=== PATIENT | female | born 1990 | race Caucasian/White ===

== ENCOUNTER 2021-06-05 07:43 | Day surgery (SDC) | payer OTHER ==
[2021-06-05] MEDS ORDERED: Ringers Lactate 1,000 ML IV ONE (08:16)
[2021-06-05 08:42] LABS: Specific Gravity 1.025 (1.005-1.030)
[2021-06-05] MEDS ORDERED: LIDOCAINE 1% W/EPI 1:100,000 10 ML VIAL ONE (08:57)
[2021-06-05] MEDS ORDERED: OXYMETAZOLINE HCL 0.05% 15ML NAS ONE (09:11)
[2021-06-05] MEDS ORDERED: ROCURONIUM 50 MG/5 ML VIAL IV ONE ×2 (09:19→10:32)
[2021-06-05] MEDS ORDERED: FENTANYL CITR 100 MCG/2 ML ONE ×3 (09:19→10:32)
[2021-06-05] MEDS ORDERED: propofoL 200 MG/20 ML VIAL IV ONE (09:19)
[2021-06-05] MEDS ORDERED: MIDAZOLAM HCL 2 MG/2 ML INJ ONE (09:19)
[2021-06-05] MEDS ORDERED: LIDOCAINE 1% MPF 5 ML VIAL ONE (09:19)
[2021-06-05] MEDS ORDERED: LIDOCAINE JELLY 2%- 5 ML TUBE ONE (09:20)
[2021-06-05] MEDS: CLINDAMYCIN 900MG/D5W 900 MG/50 ML IVPB IV ONE ×2 (09:29→09:30)
[2021-06-05] MEDS ORDERED: CHLORHEXIDINE 0.12% 473ML BOT MM ONE (09:36)
[2021-06-05] MEDS ORDERED: KETOROLAC 30 MG/ML INJ ONE (09:43)
[2021-06-05] MEDS ORDERED: dexAMETHasone 10 MG/ML VIAL ONE (09:43)
[2021-06-05] MEDS ORDERED: ONDANSETRON 4 MG/2 ML VIAL ONE (09:45)
[2021-06-05] MEDS ORDERED: GLYCOPYRROLATE 0.2 MG/ML SYR ONE (10:55)
[2021-06-05] MEDS ORDERED: NEOSTIGMINE 1 MG/ML -5 ML ONE (11:05)
[2021-06-05 11:38] VITALS: O2SAT 100
[2021-06-05] MEDS: LABETALOL 20 MG/4ML SYRINGE IV ONE ×2 (12:10→12:15)
--- NOTE | 2021-06-05 12:49 | P.OP ---
Dock Or Pier Laborer: NONE,NONE Preoperative diagnosis: left floor of mouth ranula Postoperative diagnosis: same Primary procedure: left ranula and sublingual gland excision Anesthesia: general Estimated blood loss: 15ml Specimen: left sublingual gland Findings: small residual opening from recent I&D of ranula, submandibular duct intact Operative Technique: After nasal intubation, the patient was positioned supine. The patient was draped in a sterile fashion. No prep was required to the intraoral nature of the case. There was some cuff leak due to the small tube and a throat pack was placed with a silk suture tag extending out of the mouth and clamped to the drapes. A bite block was placed and silk sutures placed in the tip and left lateral aspect of the tongue. These were clamped to the drapes to aid in retraction and elevation of the tongue. The left floor of mouth was examined and the recent incision of the left floor of mouth was healing with a pin point/1mm residual opening. The floor of mouth was significantly less swollen than her exam about 1 week ago. The left floor of mouth was injected with a few milliliters of 1% lidocaine with epinephrine. An initial attempt to canulate the left whartons duct was not successful and was abandoned. A needle point bovie was used to incise through the mucosa around the residual opening with a fusiform 1 x 2 cm area of mucosa. Due to the lack of fluid collection, a discrete cyst wall was not present. The mucosa and soft tissues were gentle dissected and the sublingual gland was identified. The gland wsa judiciously dissected with blunt pressure using a peanut sponge, sharp dissection with tenotomy scissors and needle point cautery. Cautery and direct pressure was applied through the dissection to maintain hemostasis. The sublingual gland was elevated from the floor of mouth and circomfrentially dissection until it was completely removed. During dissection, the lingual nerve was identified and presevered. The lingual vein was noted and protected. The lingual artery was not directly encountered. After removal of the gland, the area was packed with a ray-sinan for about 3 minutes to aid in hemostasis. After removal, the left floor of mouth was inspected. There was a severed duct-like structure which I could not canulate but seemed to be attached toward the right floor of mouth and not connected to the left Иван's duct opening. The 00 lacrimal probe was used to canulate the left whartons duct sucessfully and the intact submandibular duct to noted in the anterior, deep, lateral aspect of the field. The probe was removed. After confirmation of the location and structure of the submandiular duct, the severed structure was ligated with a 2-0 silk suture. The wound and mouth was irrigated with Peridex and suctioned. The left floor of mouth excision site was closed with interrupted 4-0 chromic sutures. The posterior most aspect was left open due to lack of lateral soft tissue to hold suture and in interest of avoid inadvertent ligation of the lateral aspect of the submandibular duct. Direct pressure was applied for a few minutes to ensure hemostasis. The oral cavity was again irrigated with Peridex and suctioned. The throat pack was removed and there was a small amount of blood from intubation trauma coming from the nasopharynx. A nasal speculum was used to examine the left nasal cavity. Blood was suctioned and there was a small amount of bleeding at the head of the middle turbinate. A Posisep dissolvable nasal dressing was placed in the left nasal cavity and saturated with saline. The patient was returned to the anesthesia service for awakening and extubation. After extubation, the right nasal cavity was noted to have oozing from an anterior septal laceration. An additional Posisep dressing was placed in the right nasal cavity and saline applied. The procedure was concluded and the patient returned to care of anaesthesia for transfer to the recovery room. Complications: None Implants: Posisep to bilateral nasal cavities Fluids & blood products: see anesthesia records Transferred to: Recovery Room Condition: Good
[2021-06-05 14:10] VITALS: BP 152/99
[2021-06-05 14:12] VITALS: TEMP 97.4
== END 2021-06-05 13:03 | disposition home or self-care (01) ==
LOC: OR 07:43
PROVIDERS: ATTEND Otolaryngology
PROC: 0CBF0ZZ Excision of Left Sublingual Gland, Open Approach (ICD-10-PCS; principal; 2021-06-05 09:00)
DX: K11.6 Mucocele of salivary gland (principal); K12.2 Cellulitis and abscess of mouth; R03.0 Elevated blood-pressure reading, without diagnosis of hypertension; E66.3 Overweight; Z20.822 Contact with and (suspected) exposure to COVID-19
CPT/HCPCS: 81025; 88304; 42408; U0003; J2704; J2250; J3010 ×3; J1100; J2710; J7120; J2405; 88307